=== PATIENT | male | born 1950 | race Caucasian/White ===

== ENCOUNTER 2019-03-13 15:43 | Emergency (ER) | payer OTHER ==
[~2019-03-13] VITALS: Ht 175.3 cm; Wt 59.0 kg
[2019-03-13 15:49] VITALS: Ht 175.3 cm; Wt 59.0 kg
[2019-03-13 16:12] LABS: RED CELL DISTRIBUTION WIDTH 14.2 % (11.5-14.5)
[2019-03-13 16:16] LABS: BASOPHIL % 0 % (0-2); PLATELET COUNT 408 x10^3mcL (130-400)
[2019-03-13 16:25] LABS: CALCIUM 8.4 mg/dL (8.5-10.1); CARBON DIOXIDE 26.4 mmol/L (21-32); CREATININE SERUM 1.4 mg/dL (0.7-1.3); POTASSIUM SERUM 4.9 mmol/L (3.5-5.1)
[2019-03-13 16:29] LABS: BILIRUBIN TOTAL 0.5 mg/dL (0.20-1.00); MAGNESIUM 1.9 mg/dL (1.8-2.4); PHOSPHOROUS 2.2 mg/dL (2.5-4.9); TOTAL PROTEIN, SERUM 6.8 g/dL (6.4-8.2)
[2019-03-13 16:30] LABS: ALBUMIN 2.7 g/dL (3.4-5.0)
[2019-03-13 20:01] LABS: UA SPECIFIC GRAVITY 1.015 (1.005-1.035); microscopic required? YES; urine erythrocyte TRACE (NEGATIVE)
[2019-03-13 20:45] VITALS: BP 143/68
== END 2019-03-13 20:45 | disposition home or self-care (01) ==
LOC: ED 15:43
PROVIDERS: Emergency Medicine
DX: R53.1 Weakness (principal); E86.0 Dehydration; G24.9 Dystonia, unspecified; F17.210 Nicotine dependence, cigarettes, uncomplicated; D72.829 Elevated white blood cell count, unspecified; Z98.890 Other specified postprocedural states
CPT/HCPCS: 99406; J7030; Q0092

== ENCOUNTER 2020-08-26 15:27 | Emergency (ER) | payer OTHER ==
[~2020-08-26] VITALS: Ht 175.3 cm; Wt 71.2 kg
[2020-08-26 15:35] VITALS: Ht 175.3 cm; Wt 71.2 kg
[2020-08-26 18:03] LABS: PLATELET COUNT 333 x10^3mcL (152-348); RED CELL DISTRIBUTION WIDTH 13.6 % (12.1-16.2)
[2020-08-26 18:29] LABS: CARBON DIOXIDE 32.4 mmol/L (21-32); CHLORIDE SERUM 97 mmol/L (98-107); CREATININE SERUM 1.1 mg/dL (0.7-1.3); GLUCOSE SERUM 105 mg/dL (74-106); POTASSIUM SERUM 4.5 mmol/L (3.5-5.1); SODIUM SERUM 131 mmol/L (136-145)
[2020-08-26 18:34] LABS: ALBUMIN 4.2 g/dL (3.4-5.0); ALKALINE PHOSPHATASE 104 U/L (46-116); ALT/SGPT 28 U/L (16-63); AST/SGOT 25 U/L (15-37); BILIRUBIN TOTAL 0.3 mg/dL (0.20-1.00); CHOLESTEROL 137 mg/dL (<200); HDL CHOLESTEROL 62 mg/dL (40-60); MAGNESIUM 2.3 mg/dL (1.8-2.4); TOTAL PROTEIN, SERUM 7.7 g/dL (6.4-8.2)
[2020-08-26 20:03] VITALS: BP 176/87
== END 2020-08-26 20:03 | disposition home or self-care (01) ==
LOC: ED 15:27
PROVIDERS: Emergency Medicine
DX: I10 Essential (primary) hypertension (principal); E78.00 Pure hypercholesterolemia, unspecified
CPT/HCPCS: J3490